=== PATIENT | female | born 1975 | race Caucasian/White ===

== ENCOUNTER → 2020-08-09 10:38 | Outpatient (CLI) | payer MEDICARE, MEDICAID, SELFPAY ==
--- NOTE | ~2020-08-09 | MM_ITS ---
EXAMINATION: MM screening michael BI w teo HISTORY: Screening mammogram TECHNIQUE: Craniocaudal and mediolateral oblique 3-D tomosynthesis images were obtained and synthetic 2-D images were generated. CAD analysis was submitted and interpreted. COMPARISON: 11/22/2017 BREAST PARENCHYMAL COMPOSITION: There are scattered areas of fibroglandular density. FINDINGS: RIGHT BREAST: There is no evidence of suspicious mass, calcification, or architectural distortion to suggest malignancy. There has been no significant interval change. LEFT BREAST: A stable low-density mass is present in the middle third of the slightly inner breast, c onsidered benign given the lack of interval change. There is no evidence of suspicious mass, calcific ation, or architectural distortion to suggest malignancy. There has been no significant interval escobar ge. IMPRESSION: 1. No mammographic evidence of malignancy. 2. Recommend routine screening mammography in one year. BI-RADS Category 2: Benign finding(s). Reviewed, dictated and finalized at location A.
== END ==
PROVIDERS: PCP Internal Medicine; Visit Provider Obstetrics & Gynecology
DX: Z12.31 Encounter for screening mammogram for malignant neoplasm of breast (principal)
CPT/HCPCS: 77063; 77067

== ENCOUNTER → 2020-12-24 00:10 | Outpatient (CLI) | payer MEDICARE, MEDICAID, SELFPAY ==
[2020-12-24 18:04] LABS: SARS-CoV-2 RNA PCR Negative
== END ==
PROVIDERS: PCP Internal Medicine; Visit Provider Obstetrics & Gynecology
DX: Z01.812 Encounter for preprocedural laboratory examination (principal); Z20.822 Contact with and (suspected) exposure to COVID-19
CPT/HCPCS: C9803; U0003; U0005

== ENCOUNTER 2020-12-24 09:13 | Outpatient (CLI) | payer MEDICARE, MEDICAID, SELFPAY ==
--- NOTE | 2020-12-24 09:45 | ECG_ITS ---
Measurements Intervals Butler Rate: 65 P: 67 MO: 156 QRS: 52 QRSD: 78 T: 51 QT: 394 QTc: 412 Interpretive Statements SINUS RHYTHM BASELINE ARTIFACT- II, III NORMAL ECG Electronically Signed On 12-24-2020 14:18:29 CDT by Everton Oconnell D.O.
== END 2020-12-24 09:14 | disposition home or self-care (01) ==
PROVIDERS: PCP Internal Medicine; Referring Provider Anesthesiology; Visit Provider Obstetrics & Gynecology
DX: N94.6 Dysmenorrhea, unspecified (principal); F17.210 Nicotine dependence, cigarettes, uncomplicated; Z01.818 Encounter for other preprocedural examination
CPT/HCPCS: 36415; 86850; 86900; 86901; 93005

== ENCOUNTER 2020-12-28 00:23 | Day surgery (SDC) | payer MEDICARE, MEDICAID, SELFPAY ==
[2020-12-20 14:18] VITALS: BMI 30.2
[2020-12-28] VITALS (11 sets, daily range): BP systolic 100–122; BP diastolic 64–82; PULSE 67–93; RESP 14–20; TEMP 36.6–37.1; O2SAT 88–98
--- NOTE | 2020-12-28 06:59 | WPDANESEPPF ---
Anes - Initial Pre Proc Eval Procedure: Operation Date: 12/28/20 07:30 Proposed Procedures p Total Laparoscopic Hysterectomy with Bilateral Salpingectomy - Paul Tee MD Date/Time: 12/28/20 06:59 Surgeon: Paul Tee MD Pre Op Diagnosis: dysmenorrhea Patient Data Age: 45 Gender: F Height: 1.57 m Weight: 74.85 kg Allergies Allergy/AdvReac Type Severity Reaction Status Date / Time Sulfa (Sulfonamide Allergy Unknown Other Verified 12/20/20 14:15 Antibiotics) Home Medications Medication Instructions Recorded Confirmed Type clonazepam 0.5 mg PO HS 12/20/20 12/20/20 History lamotrigine 200 mg PO HS 12/20/20 12/20/20 History norethindrone (contraceptive) 0.35 mg PO HS 12/20/20 12/20/20 History omeprazole 20 mg PO HS 12/20/20 12/20/20 History sertraline 200 mg PO HS 12/20/20 12/20/20 History trazodone 100 mg PO HS 12/20/20 12/20/20 History Patient hx anesthesia problems: none Family hx anesthesia problems: none Results Review: All pre-operative results and documents have been reviewed as part of the pre-operative evaluation. FOR[facility]LY [facility] Past Medical History Medical History Anxiety COPD (chronic obstructive pulmonary disease) Depression Hx of migraines Social History Social History Smoking packs per day: 1 Smoking cigarettes per day: 20.0 Years smoked: 24 Smoking pack-years: 24.00 Smoking status: Current every day smoker Tobacco type: cigarettes Alcohol intake: never Substance use: never Substance use type: does not use Living arrangements: with family Spiritual care concerns: No Anes - Eval Final PreProcedure Day of Procedure 12/28/20 06:59 Patient weight: obese Heart: regular rate and rhythm Lungs: decreased breath sounds Airway: Mallampati scale class II Neurological: alert and oriented Last oral intake: >/= 8 hours ASA classification: III Emergent: no Anesthetic plan: proceed Anesthesia type and monitoring: general ETT and standard monitoring Results Review: All pre-operative results and documents have been reviewed as part of the pre-operative evaluation. Informed Consent: The patient's anesthetic plan and its attendant risks and benefits were discussed with the patient/family/POA. Questions were solicited and answers provided to the satisfaction of the patient/family/POA.
[2020-12-28] MEDS: LACTATED RINGERS 1,000 ML 30 ML IV CONT ×2 (07:03→09:15)
--- NOTE | 2020-12-28 07:14 | WPDHPUPDATE1 ---
History and Physical Update Update Date/Time: 12/28/20 07:14 History and Physical has been reviewed, including an updated exam of the patient. There are NO changes in the patient's condition. Risks, benefits, and alternatives have been discussed and questions answered. Patient agrees to proceed with procedure.
[2020-12-28] MEDS: KETOROLAC 15 MG/ML VIAL (*BKC) IV PUSH (07:19)
[2020-12-28] MEDS: SCOPOLAMINE 1.5 MG PATCH TRANSDERM (07:19)
[2020-12-28] MEDS: ACETAMINOPHEN 500 MG TABLET 1000 MG PO (07:19)
[2020-12-28] MEDS: ceFAZolin 2 GM/D5W 50 ML 2 GM/50 ML BAG IVPB (07:27)
--- NOTE | 2020-12-28 09:16 | W.PM.PROC2 ---
Procedure Note - Detailed Date of Procedure 12/28/20 Pre-op Diagnosis dysmenrrhea Post-op Diagnosis same Procedure Performed Total laparoscopic hysterectomy and bilateral salpingectomy. Surgeon Paul Tee MD Anesthesia general Indications Severe menometrorrhagia, possible cervical mass Findings Moderate sized uterus, normal appearing ovaries and normal-appearing tubes. Description of Procedure This patient was taken to the operating room. She was prepped and draped in the dorsal lithotomy position after induction of general anesthesia. The uterine manipulator and Ac cup were placed. This was done with a speculum and tenaculum. The speculum was placed. The cervix was grasped with a tenaculum. The stay sutures were placed at 3 and 9:00 a.m.. The stay sutures of 0 Vicryl were brought through the appropriately sized Ac cup. The tip of the CHARLES manipulator was placed in the intrauterine cavity. The cup was slid into place around the cervix and into the fornices. It was locked into place. The sutures were then wrapped around the handle and tied under tension. A 5 mm skin incision was made in the left upper quadrant the abdomen. A 5 mm trocar was inserted into the intrauterine cavity under direct visualization of the scope. Pneumoperitoneum was achieved. A left lower quadrant 11 mm incision was made with scalpel. An 11 mm trocar was inserted into the anterior abdominal cavity under direct visualization the scope. A 5 mm infraumbilical incision was made with a scalpel and a 5 mm trocar was inserted the intra-abdominal cavity under direct visualization of the scope. Bilateral ureteral lysis was performed. This was done from the pelvic brim down to the uterine artery. This was done with careful dissection using sharp and blunt dissection. The fallopian tubes were removed bilaterally. The mesosalpinx around the fallopian tubes were cauterized transected with LigaSure cautery. This was done in a bilateral fashion from the ovary to the uterine cornua. The fallopian tube was transected at the uterine cornu and amputated. The tube was taken out the left lower quadrant trocar site. In a stepwise fashion along the lateral aspects of the uterus the round ligament and broad ligaments were cauterized transected down to the level of the uterine arteries. A bladder flap was created in the bladder was moved distally to the end of the cervix and over the Ac cup. The bilateral uterine arteries were cauterized and transected. Colpotomy was then performed. In a circumferential fashion the vagina was transected using unipolar cautery. The incision was made down on the Ac cup. The uterus and cervix were taken out through the vagina. A pneumo occluder was placed in the vagina. The vaginal cuff was closed with a 0 V lock suture in a running fashion. The pelvis was irrigated with copious amounts antibiotic irrigation. The ureters were again examined and found to be intact and flowing freely under the uterine arteries into the bladder. The bladder was intact. It was examined directly. The vagina was irrigated with Betadine solution after removal of the Pneumo occluder. The patient was taken to recovery room. She was stable condition. Sponge lap and needle counts were correct x2. Estimated Blood Loss 50 Drains Yes Packing No Pathology yes Complications No immediate complications Condition stable Disposition floor
[2020-12-28] MEDS: fentaNYL CITRATE INJ (*CRX) 100 MCG/2 ML VIAL 25 MCG IV PUSH ×4 (09:49→10:18)
--- NOTE | 2020-12-28 11:15 | ADMGEN ---
1034-This patient, Latonya Reynoso, was admitted to OB 2nd Floor Room 289-00. Patient oriented to hospital policies and general routines including ID bracelet, bed and alarms, visiting hours, pain management, procedures, bathroom and other care routines, personal items, smoking policy, room service/diet, and visiting hours. Information on how to activate the Rapid Response Team has been discussed. Patient/Family are encouraged to report perceived risks to care and to ask questions if they do not understand what they are told or what they should do.
[2020-12-28] MEDS: DEXTROSE 5%/0.45% SOD CHL 1,000 ML 125 ML IV CONT (11:26)
[2020-12-28] MEDS: KETOROLAC 30 MG/ML VIAL (*BKC) IV PUSH ×2 (11:26→18:49)
[2020-12-28] MEDS: HYDROcodone/acetaminophen (*CRX) 5-325 MG TABLET 1 TAB PO ×3 (15:29→23:57)
[2020-12-28] MEDS: clonazePAM (*CRX) 0.5 MG TABLET PO (19:03)
[2020-12-28] MEDS: PANTOPRAZOLE 40 MG TABLET PO (19:03)
[2020-12-28] MEDS: traZODone HCL 50 MG TABLET 100 MG PO (19:04)
[2020-12-28] MEDS: SERTRALINE HCL 50 MG TABLET 200 MG PO (19:05)
--- NOTE | 2020-12-29 07:57 | PM.GYNPNOP ---
MANAGER RN - A/P Postoperative Procedures: Procedures Operation Date: 12/28/20 07:30 Actual Procedure Side Surgeon p Total Laparoscopic Hysterectomy with Bilateral Salpingectomy Not Applicable Paul Tee MD Postoperative day: 1 Postoperative status: doing well and other (Tollerating Regular Diet) Postoperative plan: routine post-op care and discharge Time Spent With Patient Time: Total time spent is greater than 50% in coordination of care (as documented) at patient's floor/unit and/or counseling patient: Time with patient: 15 - 25 minutes MANAGER RN- PN:Subj Post-Op Subjective Date/time seen: 12/29/20 07:57 Subjective: patient reports feeling better, pain is well controlled and patient is tolerating oral intake Exam Const: General: cooperative, healthy appearing, comfortable and no acute distress Resp: Auscultation: no crackles, no rales, no rhonchi and no wheezes Cardio: Rhythm: regular rhythm Heart sounds: no click and no murmurs GI: Inspection: non-distended Auscultation: normal bowel sounds Other: Incisions - CDI Extrem: General: normal to inspection, no pedal edema and no calf tenderness MANAGER RN - PN: Obj Data Vital Signs Vital Signs: Vital Signs - 24 hr 12/28/20 09:15 12/28/20 09:30 12/28/20 09:45 Temperature 97.9 F Pulse Rate 78 93 89 Respiratory Rate 18 20 18 Blood Pressure 113/82 122/74 107/72 Pulse Oximetry 98 96 96 12/28/20 10:00 12/28/20 10:15 12/28/20 10:29 Temperature 98.6 F Pulse Rate 90 82 81 Respiratory Rate 16 16 14 Blood Pressure 107/71 103/66 108/78 Pulse Oximetry 88 L 94 92 12/28/20 11:00 12/28/20 15:00 12/28/20 16:00 Temperature 97.9 F 98.8 F Pulse Rate 76 78 87 Respiratory Rate 15 15 16 Blood Pressure 100/64 101/67 Pulse Oximetry 91 91 93 12/28/20 19:30 Temperature 98.1 F Pulse Rate 67 Respiratory Rate 18 Blood Pressure 103/74 Pulse Oximetry 94 Intake/Output Intake/Output: Intake & Output 12/26/20 12/27/20 12/28/20 12/29/20 23:59 23:59 23:59 23:59 Intake Total 2090 200 Output Total 740 300 Balance 1350 -100 Meds/Results Medications: Active Medications Generic Name Dose Route Start Last Admin Trade Name Freq PRN Reason Stop Dose Admin Hydrocodone Bitart/Acetaminophen 1 tab 12/28/20 10:29 12/28/20 23:57 Hydrocodone/Acetaminophen (*Crx) 5-325 Mg Tablet PO 1 tab Q3H PRN Administration Pain Rated 5 or Less Hydrocodone Bitart/Acetaminophen 1 tab 12/28/20 10:29 Hydrocodone/Acetaminophen (*Crx) 10-325 Mg Tablet PO Q3H PRN Pain Rated 6 or Greater Clonazepam 0.5 mg 12/28/20 21:00 12/28/20 19:03 Clonazepam (*Crx) 0.5 Mg Tablet PO 0.5 mg HS LAURI Administration Dextrose/Sodium Chloride 1,000 mls @ 125 mls/hr 12/28/20 10:29 12/29/20 03:26 Dextrose 5% Sodium Chloride 0.45% IV CONT Not Given .Q8H LAURI Ibuprofen 600 mg 12/28/20 10:29 Ibuprofen 600 Mg Tablet PO Q6H PRN Cramping Ketorolac Tromethamine 30 mg 12/28/20 10:29 12/28/20 18:49 Ketorolac 30 Mg/Ml Vial (*Bkc) IV PUSH 01/02/21 10:28 30 mg Q6H PRN Administration Pain Rated 4-6 Lamotrigine 200 mg 12/28/20 21:00 Lamotrigine 100 Mg Tablet PO HS LAURI Naloxone HCl 0.1 mg 12/28/20 10:29 Naloxone Hcl 0.4 Mg/Ml Vial IV PUSH Q2M PRN Respiratory rate less than 10 Ondansetron HCl 4 mg 12/28/20 10:29 Ondansetron Inj 4 Mg/2 Ml Vial IV PUSH Q6H PRN Nausea And Vomiting Pantoprazole Sodium 40 mg 12/28/20 21:00 12/28/20 19:03 Pantoprazole 40 Mg Tablet PO 01/27/21 20:59 40 mg HS LAURI Administration Sertraline HCl 200 mg 12/28/20 21:00 12/28/20 19:05 Sertraline Hcl 50 Mg Tablet PO 200 mg HS LAURI Administration Trazodone HCl 100 mg 12/28/20 21:00 12/28/20 19:04 Trazodone Hcl 50 Mg Tablet PO 100 mg HS LAURI Administration
[2020-12-29] MEDS: HYDROcodone/acetaminophen (*CRX) 5-325 MG TABLET 1 TAB PO (07:59)
[2020-12-29] MEDS: IBUPROFEN 600 MG TABLET PO (07:59)
[2020-12-29 08:00] VITALS: BP 122/79; PULSE 56; RESP 16; TEMP 36.5; O2SAT 97
[2020-12-29] MEDS: lamoTRIgine 100 MG TABLET 200 MG PO (08:00)
== END 2020-12-29 08:56 | disposition home or self-care (01) ==
LOC: ANHSURGERY 08:07 → ANHOB2 10:38
PROVIDERS: PCP Internal Medicine; Visit Provider Obstetrics & Gynecology
PROC: 0UT9FZZ Resection of Uterus, Via Natural or Artificial Opening With Percutaneous Endoscopic Assistance (ICD-10-PCS; CPT 58571; principal; 2020-12-28 07:30)
DX: N94.6 Dysmenorrhea, unspecified (principal); J44.9 Chronic obstructive pulmonary disease, unspecified; F41.8 Other specified anxiety disorders; F17.210 Nicotine dependence, cigarettes, uncomplicated; E66.9 Obesity, unspecified; Z68.30 Body mass index [BMI] 30.0-30.9, adult
CPT/HCPCS: 58571; 36415; 86850; 86900; 86901; 88307; 93005; 99199; A9270; C9803; J0690; J1100; J1170; J1200; J1885; J2250; J2405; J2704; J2710; J3010; J7030; J7120; U0003; U0005

== ENCOUNTER 2022-03-09 08:04 | Emergency (ER) | payer MEDICARE, MEDICAID, SELFPAY ==
--- NOTE | 2022-03-09 08:07 | ED.NAVMDI ---
HPI - Nausea/Vomiting/Diarrhea General Stated complaint: vomiting Time Seen by Provider: 03/09/22 08:06 Source: patient Mode of arrival: ambulatory Limitations: no limitations History of Present Illness HPI Narrative: Latonya is a 46-year-old female patient presenting to the clinic today with complaints of nausea,vomiting, headache, fever, cough x 2 days. She reports fever has been as high as 102. She denies any abnormal shortness of breath or chest pain. She does have a history of COPD and she is a current smoker. Related Data Home Medications Medication Instructions Recorded Confirmed clonazepam 0.5 mg tablet 0.5 mg PO HS 12/20/20 03/09/22 lamotrigine 200 mg tablet 200 mg PO HS 12/20/20 03/09/22 omeprazole 20 mg tablet,delayed 20 mg PO HS 12/20/20 03/09/22 release sertraline 100 mg tablet 200 mg PO HS 12/20/20 03/09/22 trazodone 100 mg tablet 100 mg PO HS 12/20/20 03/09/22 Allergies Allergy/AdvReac Type Severity Reaction Status Date / Time Sulfa (Sulfonamide Allergy Unknown Other Verified 03/09/22 08:06 Antibiotics) Review of Systems Review of Systems: Pertinent positives per HPI. Patient denies any rash, visual changes, dizziness, sore throat, shortness of breath, chest pain, palpitations, diarrhea, constipation, abdominal pain, or any urinary issues. PMFSH Past Medical History Medical History Anxiety COPD (chronic obstructive pulmonary disease) Depression Hx of migraines Social History Social History Smoking packs per day: 1 Smoking cigarettes per day: 20.0 Years smoked: 24 Smoking pack-years: 24.00 Smoking status: Current every day smoker Tobacco type: cigarettes Alcohol intake: never Substance use: never Substance use type: does not use Spiritual care concerns: No Comments At the time of my signature, I reviewed and agree with the nursing past medical, surgical, social, and family history. There is no relevant family history pertinent to the patient complaint. Exam Narrative: General: Well-developed, well nourished, in no apparent distress Head: Normocephalic, atraumatic Eyes: Pupils equally round and reactive to light bilaterally, EOM intact, sclera and conjunctive clear, no discharge, lids normal Ears: TMs intact and dull, ear canals clear, no drainage, grossly hearing normal. Nose: Nares patent, clear nasal discharge, no inflammation, no sinus tenderness. Mouth: Oropharynx without lesions or masses, good dentition, MMM. Neck: Supple, trachea midline, no enlargement of anterior or posterior cervical nodes, no thyroid masses or goiter palpable. Cardio: Regular rate and rhythm, s1 and s2 normal, no murmur appreciated. Resp: Clear to auscultation bilaterally anteriorly and posteriorly, no rhonchi, rales, wheezing or rubs Abdomen: Soft, pliable, nontender to palpation, bowel sounds present all 4 quadrants, no CVAT tenderness, no organomegaly Course Course Emergency Course: Portions of this record may have been created with voice recognition software. Level of Care: Express Care Visit Vital Signs Vital signs: Vital signs reviewed MDM - Nausea/Vomiting/Diarrhea MDM Narrative Medical decision making narrative: At the time of visit patient is resting on the exam table. She appears mildly anxious. Influenza and COVID testing were completed. Influenza testing was negative. COVID testing was positive. Prescription for molnupiravir and Zofran was sent to the pharmacy. Supportive measures were discussed with the patient she voiced understanding of discharge instructions and agrees to treatment plan. Differential Diagnosis Differential diagnosis: Likely other ( upper respiratory infection, viral syndrome, bronchitis, COVID, influenza, RSV, pneumonia.) Discharge Plan Discharge Clinical Impression: COVID-19 Patient Disposition: Jessica
[2022-03-09 08:15] VITALS: BP 117/96; PULSE 149; RESP 16; TEMP 37.3; O2SAT 99
== END 2022-03-09 08:35 | disposition home or self-care (01) ==
PROVIDERS: Emergency Provider Nurse Practitioner Family; PCP Internal Medicine
DX: U07.1 COVID-19 (principal); J44.9 Chronic obstructive pulmonary disease, unspecified; F17.210 Nicotine dependence, cigarettes, uncomplicated
CPT/HCPCS: 87426; 87804; 99213; C9803; G0463